=== PATIENT | female | born 1940 | race Two or more races ===

== ENCOUNTER 2016-08-01 16:09 | Inpatient (IN) | payer MEDICARE, MEDICAID ==
[~2016-08-01] VITALS: Ht 162.6 cm; Wt 72.6 kg
[2016-08-01 16:11] VITALS: BP 132/80
[2016-08-01 17:14] LABS: BASOPHILS % (AUTO) 0.3 % (0.0-2.0); EOSINOPHILS % (AUTO) 0.5 % (0.0-3.0); LYMPHOCYTES % (AUTO) 10.7 % (20.0-45.0); MEAN CORPUSCULAR HEMOGLOBIN 31.3 PG (27.0-31.0); MEAN CORPUSCULAR HGB CONC 33.4 G/DL (32.0-36.0); MEAN CORPUSCULAR VOLUME 94 FL (80-99); MEAN PLATELET VOLUME 5.8 FL (6.5-10.1); MONOCYTES % (AUTO) 7.3 % (1.0-10.0); NEUTROPHILS % (AUTO) 81.2 % (45.0-75.0); PLATELET COUNT 153 K/UL (150-450); RED BLOOD COUNT 3.91 M/UL (4.20-5.40); RED CELL DISTRIBUTION WIDTH 13.6 % (11.6-14.8); WHITE BLOOD COUNT 9.1 K/UL (4.8-10.8)
--- NOTE | 2016-08-01 17:33 | Diagnostic Imaging Report ---
Indication: Syncope Technique: spiral acquisitions obtained through the brain. Angled axial and coronal 5 x 5 mm slices were reconstructed. No IV contrast utilized. Radiation dose was minimized using automated exposure control Total dose length product 1420 mGycm. CTDIvol(s) 70 mGy Comparison: none FINDINGS: No acute hemorrhage or edema. No mass effect or midline shift. There is age-related enlargement of the ventricles and extra axial CSF spaces. There is periventricular deep white matter ischemic change. There is an old lacunar infarct in the right basal ganglia. Normal steward-white differentiation. Visualized orbits are unremarkable. Visualized sinuses are unremarkable. Intact calvarium. IMPRESSION: Chronic and age-related changes. Negative for acute intracranial bleed or mass effect Old right basal ganglia lacunar infarct The CT scanner at [facility] is accredited by the [employer] and the scans are performed using protocols designed to limit radiation exposure to as low as reasonably achievable to attain images of sufficient resolution adequate for diagnostic evaluation
--- NOTE | 2016-08-01 17:33 | Emergency Room Report ---
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 when she had an episode of tripping and falling Patient does not report any loss of consciousness or lightheadedness prior to the fall reports that she put her right hand in front of her which cause her pain in the right forearm after the fall Denies any chest pain or short of breath She had a mild headache as well Denies any abdominal pain Patient had pain under the left breast as well Denies any neck pain or photophobia Denies any lower extremity weakness Allergies: Coded Allergies: No Known Allergies (Unverified , 08/01/16) Patient History Past Medical History: see triage record Pertinent Family History: none Reviewed Nursing Documentation: PMH: Agreed, PSxH: Agreed Nursing Documentation-PMH Hx Hypertension: Yes Review of Systems All Other Systems: negative except mentioned in HPI Physical Exam Vital Signs Date Time Temp Pulse Resp B/P Pulse Ox O2 Delivery O2 Flow Rate FiO2 08/01/16 16:01 56 18 132/80 96 Room Air Sp02 EP Interpretation: reviewed, normal General Appearance: well appearing, no apparent distress Head: normocephalic, atraumatic Eyes: bilateral eye EOMI, bilateral eye PERRL ENT: hearing grossly normal, normal pharynx, TMs + canals normal, uvula midline , other - Small laceration in the inner aspect of the upper lip Neck: full range of motion, supple, no meningismus, no bony tend Respiratory: lungs clear, normal breath sounds, no rhonchi, no respiratory distress, no retraction, no accessory muscle use Cardiovascular #1: normal peripheral pulses, regular rate, rhythm, no edema, no gallop, no JVD, no murmur Gastrointestinal: normal bowel sounds, non tender, soft, no mass, no organomegaly, non-distended, no guarding, no hernia, no pulsatile mass, no rebound Genitourinary: no CVA tenderness Musculoskeletal: other - Deformity to the right forearm Neurologic: oriented x3, responsive, sensory intact Psychiatric: mood/affect normal Skin: normal color, no rash, warm/dry, other - As described with right forearm Lymphatic: normal inspection, no adenopathy Procedures Splinting Splinting : Consent: Verbal Hand-Made Type: plaster Splint: sugar-tong - right forearm Pre-Proc Neuro Vasc Exam: normal Post-Proc Neuro Vasc Exam: normal Patient Tolerated: Well Complications: None Joint Reduction Joint Reduction : Consent: Verbal Joint Reduction Site: other - right wrist Procedural Sedation: No Reduction Attempts: One Pre-Procedure NV Exam: Yes Post-Procedure NV Exam: Yes Patient Tolerated: Well Complications: None Progress Patient had a hematoma block performed with total of 4 mL 1% lidocaine into the fracture site in the right forearm, this provided appropriate sedation In the usual manner patient had traction countertraction, with a forward lean motion, we had improved alignment clinically in the right forearm with a distal radial aspect being pushed and manipulated in the palmar aspect Medical Decision Making Diagnostic Impression: Primary Impression: Syncope Additional Impressions: Wrist fracture, right Contusion ER Course Patient is a fairly complex patient with multiple differential to consideration including but not limited to cardiac cardiopulmonary and vascular emergencies Patient's CT head did not show any acute disease X-ray of the right forearm does reveal distal radial fracture This was reduced and splinted as noted above patient received further hydration kidney function is also elevated and patient admitted for further inpatient care Labs Test 08/01/16 17:01 White Blood Count 9.1 K/UL (4.8-10.8) Red Blood Count 3.91 M/UL (4.20-5.40) Hemoglobin 12.2 G/DL (12.0-16.0) Hematocrit 36.7 % (37.0-47.0) Mean Corpuscular Volume 94 FL (80-99) Mean Corpuscular Hemoglobin 31.3 PG (27.0-31.0) Mean Corpuscular Hemoglobin Concent 33.4 G/DL (32.0-36.0) Red Cell Distribution Width 13.6 % (11.6-14.8) Platelet Count 153 K/UL (150-450) Mean Platelet Volume 5.8 FL (6.5-10.1) Neutrophils (%) (Auto) 81.2 % (45.0-75.0) Lymphocytes (%) (Auto) 10.7 % (20.0-45.0) Monocytes (%) (Auto) 7.3 % (1.0-10.0) Eosinophils (%) (Auto) 0.5 % (0.0-3.0) Basophils (%) (Auto) 0.3 % (0.0-2.0) Prothrombin Time 9.9 SEC (9.30-11.50) Prothromb Time International Ratio 1.0 (0.9-1.1) Activated Partial Thromboplast Time 24 SEC (23-33) Sodium Level 141 mEQ/L (135-145) Potassium Level 5.0 mEQ/L (3.4-4.9) Chloride Level 102 mEQ/L (98-107) Carbon Dioxide Level 25 mEQ/L (20-30) Anion Gap 14 (5-15) Blood Urea Nitrogen 36 mg/dL (7-23) Creatinine 1.7 mg/dL (0.5-0.9) Estimat Glomerular Filtration Rate mL/min (>60) Glucose Level 143 mg/dL (74-106) Uric Acid 6.1 mg/dL (3.0-7.5) Calcium Level 10.0 mg/dL (8.6-10.2) Phosphorus Level 3.5 mg/dL (2.5-4.8) Magnesium Level 2.1 mg/dL (1.7-2.5) Total Bilirubin 0.7 mg/dL (0.0-1.2) Aspartate Amino Transf (AST/SGOT) 18 U/L (5-40) Alanine Aminotransferase (ALT/SGPT) 22 U/L (3-33) Alkaline Phosphatase 53 U/L (35-104) Total Creatine Kinase 73 U/L (26-140) Creatine Kinase MB 3.5 ng/mL (< 3.8) Creatine Kinase MB Relative Index 4.7 Troponin I < 0.30 ng/mL (<=0.30) Pro-B-Type Natriuretic Peptide 2155 pg/mL (0-450) Total Protein 5.8 g/dL (6.6-8.7) Albumin 4.0 g/dL (3.5-5.2) Globulin 1.8 g/dL Albumin/Globulin Ratio 2.2 (1.0-2.7) Lipase 19 U/L (< 60) Thyroid Stimulating Hormone (TSH) 1.780 uIU/mL (0.300-4.500) Free Thyroxine 1.54 ng/dL (0.86-1.85) EKG Diagnostic Results Rate: normal Rhythm: NSR ST Segments: other - Nonspecific ST and T-wave changes Rhythm Strip Diag. Results EP Interpretation: yes Rate: 77 Rhythm: NSR, no PVC's, no ectopy Chest X-Ray Diagnostic Results EP Interpretation: Yes Findings: no consolidation, no effusion, no pneumothorax Number of Views: 1 Other X-Ray Diagnostic Results Other X-Ray Diagnostic Results : EP Interpretation: Yes Findings: no soft tissue swelling, other - Distal radial fracture mild soft tissue swelling no foreign body, , Number of Views: 2 - right forearm CT/MRI/US Diagnostic Results CT/MRI/US Diagnostic Results : Impression CT head no acute disease Last Vital Signs Date Time Temp Pulse Resp B/P Pulse Ox O2 Delivery O2 Flow Rate FiO2 08/01/16 16:01 56 18 132/80 96 Room Air Status: improved Disposition: ADMITTED INPATIENT Condition: Serious Referrals: NOT CHOSEN IPA/,REFERRING (PCP) GRACIELA CASANOVA D.O. Aug 01, 2016 17:32
[2016-08-01 17:37] LABS: ALANINE AMINOTRANSFERASE 22 U/L (3-33); ALBUMIN/GLOBULIN RATIO 2.2 (1.0-2.7); ANION GAP 14 (5-15); ASPARTATE AMINO TRANSFERASE 18 U/L (5-40); CARBON DIOXIDE 25 mEQ/L (20-30); CHLORIDE 102 mEQ/L (98-107); CREATININE 1.7 mg/dL (0.5-0.9); HEMOLYSIS 8; LIPASE 19 U/L (< 60); SODIUM 141 mEQ/L (135-145); TOTAL PROTEIN 5.8 g/dL (6.6-8.7)
[2016-08-01 17:54] LABS: PROTHROMBIN TIME 9.9 SEC (9.30-11.50)
[2016-08-01 17:57] LABS: TROPONIN I < 0.30 ng/mL (<=0.30)
[2016-08-01 18:05] LABS: CKMB 3.5 ng/mL (< 3.8)
[2016-08-01 18:34] VITALS: BP 142/84
[2016-08-01] MEDS ORDERED: Morphine Sulfate 4mg/ml Inj IVP ONE (19:15)
[2016-08-01] MEDS ORDERED: Nitroglycerin Subl 0.4mg tab (Bottle Of 25) SL PRN (19:30)
[2016-08-01] MEDS ORDERED: Miralax 17gm pkt ORAL PRN (19:30)
[2016-08-01] MEDS ORDERED: DuoNeb 0.5-3(2.5)mg/3ml neb HHN PRN (19:30)
[2016-08-01] MEDS ORDERED: LORazepam Inj 2mg/ml 1ml IV PRN (19:30)
[2016-08-01] MEDS ORDERED: Mylanta II UD 30ml ORAL PRN (19:30)
[2016-08-01 19:58] LABS: MAGNESIUM 2.1 mg/dL (1.7-2.5); PHOSPHORUS 3.5 mg/dL (2.5-4.8); URIC ACID 6.1 mg/dL (3.0-7.5)
[2016-08-01] MEDS ORDERED: TRAMADOL HCL200 M1 ORAL (20:07)
[2016-08-01] MEDS ORDERED: HYDRALAZINE HCL50 MG ORAL (20:07)
[2016-08-01 20:09] LABS: THYROID STIMULATING HORMONE 1.78 uIU/mL (0.300-4.500)
[2016-08-01] MEDS: Morphine Sulfate 2mg/ml Inj IVP PRN (21:26)
[2016-08-01] MEDS: Heparin 5000 units/ml inj SUBQ SCH (21:32)
[2016-08-02] VITALS (8 sets, daily range): BP systolic 139–192; BP diastolic 55–92
[2016-08-02] MEDS: Morphine Sulfate 2mg/ml Inj IVP PRN ×3 (01:17→22:17)
[2016-08-02 04:02] LABS: APPEARANCE,URINE CLEAR; KETONES,URINE NEGATIVE (NEGATIVE); PH,URINE 5 (4.5-8.0); PROTEIN,URINE NEGATIVE (NEGATIVE); UROBILINOGEN,URINE NORMAL MG/DL (0.0-1.0)
[2016-08-02 04:28] LABS: LEUKOCYTE ESTERASE ,URINE NEGATIVE (NEGATIVE); NITRITE,URINE NEGATIVE (NEGATIVE)
[2016-08-02 05:22] LABS: RBC,URINE 0-2 /HPF (0 - 2)
[2016-08-02 05:23] LABS: BACTERIA,URINE FEW /HPF; SQUAMOUS EPITHELIAL CELL,UR FEW /LPF (NONE/OCC)
--- NOTE | 2016-08-02 06:38 | Consultation ---
DATE OF CONSULTATION: 08/01/2016 CHIEF COMPLAINT: Right wrist pain. HISTORY OF PRESENT ILLNESS: The patient is a pleasant 76-year-old female who sustained a mechanical fall. She had a displaced distal radius fracture. Orthopedic consult was obtained for further care and recommendation. The patient had a hematoma block when the initial anesthesia was done in the ER with complication of in place. PAST MEDICAL HISTORY: Reviewed from the intake chart. PAST SURGICAL HISTORY: Reviewed from the intake chart. MEDICATIONS: Reviewed from the intake chart. ASSESSMENT: Right extraarticular distal radius fracture. DISCUSSION: At this point, she has moderate swelling. I have recommended elevation of the right hand above the heart. I also recommend removal of the rings that are in the hands. I am going to get repeat postreduction films to see the overall reduction. The overall reduction was reasonable in the event that it is still displaced then consideration for open reduction and internal fixation would be reasonable. We will obtain the imaging studies. In the meantime, she is going to be evaluated by Dr. Lake from medical point of view to make sure that she is stable. Daniel Dodd M.D. DR: WILMAN JOB#: [id number] CC:
[2016-08-02 07:21] LABS: BASOPHILS % (AUTO) 0.3 % (0.0-2.0); EOSINOPHILS % (AUTO) 0.5 % (0.0-3.0); LYMPHOCYTES % (AUTO) 13.7 % (20.0-45.0); MEAN CORPUSCULAR HEMOGLOBIN 30.9 PG (27.0-31.0); MEAN CORPUSCULAR HGB CONC 32.4 G/DL (32.0-36.0); MEAN CORPUSCULAR VOLUME 95 FL (80-99); MEAN PLATELET VOLUME 6.5 FL (6.5-10.1); MONOCYTES % (AUTO) 10.1 % (1.0-10.0); NEUTROPHILS % (AUTO) 75.4 % (45.0-75.0); PLATELET COUNT 148 K/UL (150-450); RED BLOOD COUNT 3.85 M/UL (4.20-5.40); RED CELL DISTRIBUTION WIDTH 13.6 % (11.6-14.8); WHITE BLOOD COUNT 7.4 K/UL (4.8-10.8)
[2016-08-02 07:44] LABS: ALANINE AMINOTRANSFERASE 19 U/L (3-33); ANION GAP 14 (5-15); ASPARTATE AMINO TRANSFERASE 18 U/L (5-40); CALCIUM 9.6 mg/dL (8.6-10.2); CARBON DIOXIDE 23 mEQ/L (20-30); CHLORIDE 103 mEQ/L (98-107); CHOLESTEROL 196 mg/dL (< 200); CHOLESTEROL/HDL RATIO 5.8 (3.3-4.4); CREATININE 1.6 mg/dL (0.5-0.9); HEMOLYSIS 4; LDL CHOLESTEROL (CALC.) 124 mg/dL (60-99); POTASSIUM 4.8 mEQ/L (3.4-4.9); SODIUM 140 mEQ/L (135-145); TOTAL PROTEIN 5.5 g/dL (6.6-8.7)
[2016-08-02] MEDS: Heparin 5000 units/ml inj SUBQ SCH ×2 (08:19→20:20)
--- NOTE | 2016-08-02 10:55 | Diagnostic Imaging Report ---
Indication: Chest pain Technique: One view of the chest Comparison: none Findings: Low lung volumes noted. Patient's chin obscures the upper mediastinum. The heart is enlarged. Aorta is tortuous and calcified. No definite infiltrate, effusion, or congestion Impression: Findings as noted. Limited exam. No definite acute process
--- NOTE | 2016-08-02 10:57 | Diagnostic Imaging Report ---
Indications: Pain, status post fall Technique: Two views of the left forearm Comparison: None Findings: There is a posteriorly displaced fracture of the distal radius, displaced by about one bone width. There is a nondisplaced fracture of the ulnar styloid. Bones are osteoporotic Impression: Positive for distal radial and ulnar fractures
--- NOTE | 2016-08-02 12:56 | History and Physical ---
History of Present Illness General Date patient seen: Aug 02, 2016 Reason for Hospitalization: Multiple Trauma/Fall Present Illness HPI 76 year old female with hx of HTN, brought in by paramedics with CC of tripping and falling. she doesn't remember if she fainted or not. she developed right hand/ wrist pain. Initial evaluation in ER showed that she has right wrist fracture. She is admitted to telemetry for further evaluation of the possible syncopal episode. Allergies: Coded Allergies: No Known Allergies (Unverified , 08/01/16) Medication History Scheduled Hydralazine Hcl* (Hydralazine Hcl*), 50 MG ORAL EVERY 8 HOURS, (Reported) Tramadol Hcl (Tramadol Hcl), 200 MG ORAL DAILY, (Reported) Patient History Healthcare decision maker BARNEYSTALIN (SON) [phone] Resuscitation status Full Code Advanced Directive on File Past Medical/Surgical History Past Medical/Surgical History: (1) History of hypertension Review of Systems All Other Systems: negative except mentioned in HPI Physical Exam General Appearance: WD/WN Lines, tubes and drains: peripheral HEENT: normocephalic, atraumatic Neck: non-tender, supple Respiratory/Chest: chest wall non-tender, lungs clear Cardiovascular/Chest: normal peripheral pulses, normal rate Abdomen: normal bowel sounds, non tender Extremities: other - right wrist cast Skin Exam: normal pigmentation Neurologic: mounter sousaphones II-XII grossly normal Last 24 Hour Vital Signs Date Time Temp Pulse Resp B/P Pulse Ox O2 Delivery O2 Flow Rate FiO2 08/02/16 12:02 97.5 55 18 159/81 96 Room Air 55 08/02/16 08:18 192/92 08/02/16 08:00 56 08/02/16 08:00 99.0 58 18 192/92 95 Room Air 55 08/02/16 04:16 98.1 60 18 150/81 98 Room Air 08/02/16 04:00 57 08/02/16 00:00 98.8 58 18 167/74 97 Room Air 08/02/16 00:00 57 08/01/16 19:40 98.1 84 18 142/84 96 Room Air 08/01/16 18:34 98.1 84 18 142/84 96 Room Air 08/01/16 16:11 98.1 84 18 132/80 96 Room Air 4/3/17 16:01 56 18 132/80 96 Room Air Intake and Output 08/01/16 08/02/16 19:00 07:00 Intake Total 500 ml 420 ml Balance 500 ml 420 ml Intake Oral 420 ml IV Total 500 ml # Voids 2 Laboratory Tests Test 08/01/16 17:01 08/02/16 00:30 08/02/16 06:35 White Blood Count 9.1 K/UL (4.8-10.8) 7.4 K/UL (4.8-10.8) Red Blood Count 3.91 M/UL (4.20-5.40) L 3.85 M/UL (4.20-5.40) L Hemoglobin 12.2 G/DL (12.0-16.0) 11.9 G/DL (12.0-16.0) L Hematocrit 36.7 % (37.0-47.0) L 36.6 % (37.0-47.0) L Mean Corpuscular Volume 94 FL (80-99) 95 FL (80-99) Mean Corpuscular Hemoglobin 31.3 PG (27.0-31.0) H 30.9 PG (27.0-31.0) Mean Corpuscular Hemoglobin Concent 33.4 G/DL (32.0-36.0) 32.4 G/DL (32.0-36.0) Red Cell Distribution Width 13.6 % (11.6-14.8) 13.6 % (11.6-14.8) Platelet Count 153 K/UL (150-450) 148 K/UL (150-450) L Mean Platelet Volume 5.8 FL (6.5-10.1) L 6.5 FL (6.5-10.1) Neutrophils (%) (Auto) 81.2 % (45.0-75.0) H 75.4 % (45.0-75.0) H Lymphocytes (%) (Auto) 10.7 % (20.0-45.0) L 13.7 % (20.0-45.0) L Monocytes (%) (Auto) 7.3 % (1.0-10.0) 10.1 % (1.0-10.0) H Eosinophils (%) (Auto) 0.5 % (0.0-3.0) 0.5 % (0.0-3.0) Basophils (%) (Auto) 0.3 % (0.0-2.0) 0.3 % (0.0-2.0) Prothrombin Time 9.9 SEC (9.30-11.50) 10.0 SEC (9.30-11.50) Prothromb Time International Ratio 1.0 (0.9-1.1) 1.0 (0.9-1.1) Activated Partial Thromboplast Time 24 SEC (23-33) 26 SEC (23-33) Sodium Level 141 mEQ/L (135-145) 140 mEQ/L (135-145) Potassium Level 5.0 mEQ/L (3.4-4.9) H 4.8 mEQ/L (3.4-4.9) Chloride Level 102 mEQ/L (98-107) 103 mEQ/L (98-107) Carbon Dioxide Level 25 mEQ/L (20-30) 23 mEQ/L (20-30) Anion Gap 14 (5-15) 14 (5-15) Blood Urea Nitrogen 36 mg/dL (7-23) H 29 mg/dL (7-23) H Creatinine 1.7 mg/dL (0.5-0.9) H 1.6 mg/dL (0.5-0.9) H Estimat Glomerular Filtration Rate mL/min (>60) mL/min (>60) Glucose Level 143 mg/dL (74-106) H 154 mg/dL (74-106) H Uric Acid 6.1 mg/dL (3.0-7.5) Calcium Level 10.0 mg/dL (8.6-10.2) 9.6 mg/dL (8.6-10.2) Phosphorus Level 3.5 mg/dL (2.5-4.8) Magnesium Level 2.1 mg/dL (1.7-2.5) Total Bilirubin 0.7 mg/dL (0.0-1.2) 0.9 mg/dL (0.0-1.2) Aspartate Amino Transf (AST/SGOT) 18 U/L (5-40) 18 U/L (5-40) Alanine Aminotransferase (ALT/SGPT) 22 U/L (3-33) 19 U/L (3-33) Alkaline Phosphatase 53 U/L (35-104) 51 U/L (35-104) Total Creatine Kinase 73 U/L (26-140) Creatine Kinase MB 3.5 ng/mL (< 3.8) Creatine Kinase MB Relative Index 4.7 Troponin I < 0.30 ng/mL (<=0.30) Pro-B-Type Natriuretic Peptide 2155 pg/mL (0-450) H Total Protein 5.8 g/dL (6.6-8.7) L 5.5 g/dL (6.6-8.7) L Albumin 4.0 g/dL (3.5-5.2) 3.7 g/dL (3.5-5.2) Globulin 1.8 g/dL 1.8 g/dL Albumin/Globulin Ratio 2.2 (1.0-2.7) 2.0 (1.0-2.7) Lipase 19 U/L (< 60) Thyroid Stimulating Hormone (TSH) 1.780 uIU/mL (0.300-4.500) 2.210 uIU/mL (0.300-4.500) Free Thyroxine 1.54 ng/dL (0.86-1.85) Urine Color Pale yellow Urine Appearance Clear Urine pH 5 (4.5-8.0) Urine Specific [place] 1.020 (1.005-1.035) Urine Protein Negative (NEGATIVE) Urine Glucose (UA) 1+ (NEGATIVE) H Urine Ketones Negative (NEGATIVE) Urine Occult Blood Negative (NEGATIVE) Urine Nitrite Negative (NEGATIVE) Urine Bilirubin Negative (NEGATIVE) Urine Urobilinogen Normal MG/DL (0.0-1.0) Urine Leukocyte Esterase Negative (NEGATIVE) Urine RBC 0-2 /HPF (0 - 2) Urine WBC 2-4 /HPF (0 - 2) Urine Squamous Epithelial Cells Few /LPF (NONE/OCC) Urine Bacteria Few /HPF (NONE) Urine Eosinophils Few Urine Osmolality Pending Urine Random Sodium 145 mmol/L Urine Potassium Timed 37 mmol/L Plasma/Serum Osmolality Pending Triglycerides Level 191 mg/dL (< 150) H Cholesterol Level 196 mg/dL (< 200) LDL Cholesterol 124 mg/dL (60-99) H HDL Cholesterol 34 mg/dL (> 60) Cholesterol/HDL Ratio 5.8 (3.3-4.4) H Free Triiodothyronine Pending Cortisol Pending Height (Feet): 5 Height (Inches): 4.00 Weight (Pounds): 160 Medications Current Medications Medications (Trade) Dose Ordered Sig/Jasmina Route PRN Reason Start Time Stop Time Status Last Admin Dose Admin Acetaminophen (Tylenol) 650 mg Q4H PRN ORAL fever 08/01/16 19:30 08/31/16 19:29 Al Hydroxide/Mg Hydroxide (Mylanta II) 30 ml Q6H PRN ORAL dyspepsia 08/01/16 19:30 08/31/16 19:29 Albuterol/ Ipratropium (DuoNeb 0.5-3(2.5)mg/3ml) 3 ml Q4H PRN HHN Shortness of Breath 08/01/16 19:30 08/06/16 19:29 Clonidine HCl (Catapres) 0.1 mg Q4H PRN ORAL SBP > 160 08/01/16 19:30 08/31/16 19:29 08/02/16 08:18 Dextrose (Dextrose 50%) STAT PRN IV Hypoglycemia 08/01/16 19:30 08/31/16 19:29 Heparin Sodium (Porcine) (Heparin 5000 units/ml) 5,000 units EVERY 12 HOURS SUBQ 08/01/16 21:00 08/31/16 20:59 08/02/16 08:19 Lorazepam (Ativan 2mg/ml 1ml) 0.5 mg Q4H PRN IV For Anxiety 08/01/16 19:30 08/08/16 19:29 Morphine Sulfate (Morphine Sulfate) 1 mg Q4H PRN IVP For Pain 7-10 08/01/16 19:30 08/08/16 19:29 08/02/16 10:40 Nitroglycerin (Ntg) 0.4 mg Q5M X 3 DOSES PRN SL Prn Chest Pain 08/01/16 19:30 08/31/16 19:29 Ondansetron HCl (Zofran) 4 mg Q6H PRN IVP Nausea & Vomiting 08/01/16 19:30 08/31/16 19:29 Polyethylene Glycol (Miralax) 17 gm HSPRN PRN ORAL Constipation 08/01/16 19:30 08/31/16 19:29 Temazepam (Restoril) 15 mg HSPRN PRN ORAL Insomnia 08/01/16 19:30 08/08/16 19:29 Assessment/Plan Problem List: (1) Acute encephalopathy ICD Codes: G93.40 - Encephalopathy, unspecified SNOMED: 2782653 (2) ATN (acute tubular necrosis) ICD Codes: N17.0 - Acute kidney failure with tubular necrosis SNOMED: 41964465 (3) Syncope ICD Codes: R55 - Syncope and collapse SNOMED: 927271605 (4) History of hypertension ICD Codes: Z86.79 - Personal history of other diseases of the circulatory system SNOMED: 590600310 (5) Wrist fracture, right ICD Codes: S62.101A - Fracture of unspecified carpal bone, right wrist, initial encounter for closed fracture SNOMED: 63545414, 201734862 Assessment/Plan telemetry monitoring echo neuro and cardio evaluation ortho has seen and evaluated the pt MARY IRVING Aug 02, 2016 12:56
--- NOTE | 2016-08-02 16:03 | Neurology Progress Note ---
Objective Physical Exam Last Vital Signs Date Time Temp Pulse Resp B/P Pulse Ox O2 Delivery O2 Flow Rate FiO2 08/02/16 12:02 97.5 55 18 159/81 96 Room Air 55 Laboratory Tests Test 08/01/16 17:01 08/02/16 00:30 08/02/16 06:35 White Blood Count 9.1 K/UL (4.8-10.8) 7.4 K/UL (4.8-10.8) Red Blood Count 3.91 M/UL (4.20-5.40) L 3.85 M/UL (4.20-5.40) L Hemoglobin 12.2 G/DL (12.0-16.0) 11.9 G/DL (12.0-16.0) L Hematocrit 36.7 % (37.0-47.0) L 36.6 % (37.0-47.0) L Mean Corpuscular Volume 94 FL (80-99) 95 FL (80-99) Mean Corpuscular Hemoglobin 31.3 PG (27.0-31.0) H 30.9 PG (27.0-31.0) Mean Corpuscular Hemoglobin Concent 33.4 G/DL (32.0-36.0) 32.4 G/DL (32.0-36.0) Red Cell Distribution Width 13.6 % (11.6-14.8) 13.6 % (11.6-14.8) Platelet Count 153 K/UL (150-450) 148 K/UL (150-450) L Mean Platelet Volume 5.8 FL (6.5-10.1) L 6.5 FL (6.5-10.1) Neutrophils (%) (Auto) 81.2 % (45.0-75.0) H 75.4 % (45.0-75.0) H Lymphocytes (%) (Auto) 10.7 % (20.0-45.0) L 13.7 % (20.0-45.0) L Monocytes (%) (Auto) 7.3 % (1.0-10.0) 10.1 % (1.0-10.0) H Eosinophils (%) (Auto) 0.5 % (0.0-3.0) 0.5 % (0.0-3.0) Basophils (%) (Auto) 0.3 % (0.0-2.0) 0.3 % (0.0-2.0) Prothrombin Time 9.9 SEC (9.30-11.50) 10.0 SEC (9.30-11.50) Prothromb Time International Ratio 1.0 (0.9-1.1) 1.0 (0.9-1.1) Activated Partial Thromboplast Time 24 SEC (23-33) 26 SEC (23-33) Sodium Level 141 mEQ/L (135-145) 140 mEQ/L (135-145) Potassium Level 5.0 mEQ/L (3.4-4.9) H 4.8 mEQ/L (3.4-4.9) Chloride Level 102 mEQ/L (98-107) 103 mEQ/L (98-107) Carbon Dioxide Level 25 mEQ/L (20-30) 23 mEQ/L (20-30) Anion Gap 14 (5-15) 14 (5-15) Blood Urea Nitrogen 36 mg/dL (7-23) H 29 mg/dL (7-23) H Creatinine 1.7 mg/dL (0.5-0.9) H 1.6 mg/dL (0.5-0.9) H Estimat Glomerular Filtration Rate mL/min (>60) mL/min (>60) Glucose Level 143 mg/dL (74-106) H 154 mg/dL (74-106) H Uric Acid 6.1 mg/dL (3.0-7.5) Calcium Level 10.0 mg/dL (8.6-10.2) 9.6 mg/dL (8.6-10.2) Phosphorus Level 3.5 mg/dL (2.5-4.8) Magnesium Level 2.1 mg/dL (1.7-2.5) Total Bilirubin 0.7 mg/dL (0.0-1.2) 0.9 mg/dL (0.0-1.2) Aspartate Amino Transf (AST/SGOT) 18 U/L (5-40) 18 U/L (5-40) Alanine Aminotransferase (ALT/SGPT) 22 U/L (3-33) 19 U/L (3-33) Alkaline Phosphatase 53 U/L (35-104) 51 U/L (35-104) Total Creatine Kinase 73 U/L (26-140) Creatine Kinase MB 3.5 ng/mL (< 3.8) Creatine Kinase MB Relative Index 4.7 Troponin I < 0.30 ng/mL (<=0.30) Pro-B-Type Natriuretic Peptide 2155 pg/mL (0-450) H Total Protein 5.8 g/dL (6.6-8.7) L 5.5 g/dL (6.6-8.7) L Albumin 4.0 g/dL (3.5-5.2) 3.7 g/dL (3.5-5.2) Globulin 1.8 g/dL 1.8 g/dL Albumin/Globulin Ratio 2.2 (1.0-2.7) 2.0 (1.0-2.7) Lipase 19 U/L (< 60) Thyroid Stimulating Hormone (TSH) 1.780 uIU/mL (0.300-4.500) 2.210 uIU/mL (0.300-4.500) Free Thyroxine 1.54 ng/dL (0.86-1.85) Urine Color Pale yellow Urine Appearance Clear Urine pH 5 (4.5-8.0) Urine Specific [place] 1.020 (1.005-1.035) Urine Protein Negative (NEGATIVE) Urine Glucose (UA) 1+ (NEGATIVE) H Urine Ketones Negative (NEGATIVE) Urine Occult Blood Negative (NEGATIVE) Urine Nitrite Negative (NEGATIVE) Urine Bilirubin Negative (NEGATIVE) Urine Urobilinogen Normal MG/DL (0.0-1.0) Urine Leukocyte Esterase Negative (NEGATIVE) Urine RBC 0-2 /HPF (0 - 2) Urine WBC 2-4 /HPF (0 - 2) Urine Squamous Epithelial Cells Few /LPF (NONE/OCC) Urine Bacteria Few /HPF (NONE) Urine Eosinophils Few Urine Osmolality Pending Urine Random Sodium 145 mmol/L Urine Potassium Timed 37 mmol/L Plasma/Serum Osmolality Pending Triglycerides Level 191 mg/dL (< 150) H Cholesterol Level 196 mg/dL (< 200) LDL Cholesterol 124 mg/dL (60-99) H HDL Cholesterol 34 mg/dL (> 60) Cholesterol/HDL Ratio 5.8 (3.3-4.4) H Free Triiodothyronine Pending Cortisol Pending Impression/Recommendations Problems: (1) probably mechanical fall (2) Blunt head injury (3) Wrist fracture, right (4) History of hypertension Status: stable Recommendations #[id number] WALTER PEREZ Aug 02, 2016 16:03
--- NOTE | 2016-08-02 16:30 | Cardiology Progress Note ---
Assessment/Plan Assessment/Plan [id number] non syncopal fall obesity chest wall tenderness ? 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 hydrALAZINE (APRESOLINE) 50 mg oral tablet, Take 50 mg by mouth 3 times daily. gabapentin (NEURONTIN) 300 mg capsule, Take 300 mg by mouth 2 times daily. cholecalciferol, Vitamin D3, (DELTA 3) 400 unit oral tablet, Take 800 Units by mouth 2 times daily. Febuxostat (ULORIC) 40 mg TABS, Take 40 mg by mouth daily. clopidogrel (PLAVIX) 75 mg oral tablet, Take 75 mg by mouth daily. dexlansoprazole (DEXILANT) 60 mg oral capsule, Take 60 mg by mouth every evening. rosuvastatin (CRESTOR) 5 mg oral tablet, Take 5 mg by mouth nightly. lubiprostone (AMITIZA) 24 mcg capsule, Take 24 mcg by mouth 2 times daily. desvenlafaxine succinate (PRISTIQ) 50 mg 24 hr tablet, Take 50 mg by mouth daily. DOCUSATE SODIUM (DOCU SOFT PO), Take 250 mg by mouth daily as needed. Patient Active Problem List: DM2 (diabetes mellitus, type 2) (HCC) Hyperlipidemia Renal cell carcinoma (HCC) Single kidney Obese Essential hypertension Bradycardia ARF (acute renal failure) (HCC) Objective Last 24 Hour Vital Signs Date Time Temp Pulse Resp B/P Pulse Ox O2 Delivery O2 Flow Rate FiO2 08/02/16 12:02 97.5 55 18 159/81 96 Room Air 55 08/02/16 12:00 58 08/02/16 08:18 192/92 08/02/16 08:00 56 08/02/16 08:00 99.0 58 18 192/92 95 Room Air 55 08/02/16 04:16 98.1 60 18 150/81 98 Room Air 08/02/16 04:00 57 08/02/16 00:00 98.8 58 18 167/74 97 Room Air 08/02/16 00:00 57 08/01/16 19:40 98.1 84 18 142/84 96 Room Air 08/01/16 18:34 98.1 84 18 142/84 96 Room Air Intake and Output 08/01/16 08/02/16 19:00 07:00 Intake Total 500 ml 420 ml Balance 500 ml 420 ml Intake Oral 420 ml IV Total 500 ml # Voids 2 Laboratory Tests Test 08/01/16 17:01 08/02/16 00:30 08/02/16 06:35 White Blood Count 9.1 K/UL (4.8-10.8) 7.4 K/UL (4.8-10.8) Red Blood Count 3.91 M/UL (4.20-5.40) L 3.85 M/UL (4.20-5.40) L Hemoglobin 12.2 G/DL (12.0-16.0) 11.9 G/DL (12.0-16.0) L Hematocrit 36.7 % (37.0-47.0) L 36.6 % (37.0-47.0) L Mean Corpuscular Volume 94 FL (80-99) 95 FL (80-99) Mean Corpuscular Hemoglobin 31.3 PG (27.0-31.0) H 30.9 PG (27.0-31.0) Mean Corpuscular Hemoglobin Concent 33.4 G/DL (32.0-36.0) 32.4 G/DL (32.0-36.0) Red Cell Distribution Width 13.6 % (11.6-14.8) 13.6 % (11.6-14.8) Platelet Count 153 K/UL (150-450) 148 K/UL (150-450) L Mean Platelet Volume 5.8 FL (6.5-10.1) L 6.5 FL (6.5-10.1) Neutrophils (%) (Auto) 81.2 % (45.0-75.0) H 75.4 % (45.0-75.0) H Lymphocytes (%) (Auto) 10.7 % (20.0-45.0) L 13.7 % (20.0-45.0) L Monocytes (%) (Auto) 7.3 % (1.0-10.0) 10.1 % (1.0-10.0) H Eosinophils (%) (Auto) 0.5 % (0.0-3.0) 0.5 % (0.0-3.0) Basophils (%) (Auto) 0.3 % (0.0-2.0) 0.3 % (0.0-2.0) Prothrombin Time 9.9 SEC (9.30-11.50) 10.0 SEC (9.30-11.50) Prothromb Time International Ratio 1.0 (0.9-1.1) 1.0 (0.9-1.1) Activated Partial Thromboplast Time 24 SEC (23-33) 26 SEC (23-33) Sodium Level 141 mEQ/L (135-145) 140 mEQ/L (135-145) Potassium Level 5.0 mEQ/L (3.4-4.9) H 4.8 mEQ/L (3.4-4.9) Chloride Level 102 mEQ/L (98-107) 103 mEQ/L (98-107) Carbon Dioxide Level 25 mEQ/L (20-30) 23 mEQ/L (20-30) Anion Gap 14 (5-15) 14 (5-15) Blood Urea Nitrogen 36 mg/dL (7-23) H 29 mg/dL (7-23) H Creatinine 1.7 mg/dL (0.5-0.9) H 1.6 mg/dL (0.5-0.9) H Estimat Glomerular Filtration Rate mL/min (>60) mL/min (>60) Glucose Level 143 mg/dL (74-106) H 154 mg/dL (74-106) H Uric Acid 6.1 mg/dL (3.0-7.5) Calcium Level 10.0 mg/dL (8.6-10.2) 9.6 mg/dL (8.6-10.2) Phosphorus Level 3.5 mg/dL (2.5-4.8) Magnesium Level 2.1 mg/dL (1.7-2.5) Total Bilirubin 0.7 mg/dL (0.0-1.2) 0.9 mg/dL (0.0-1.2) Aspartate Amino Transf (AST/SGOT) 18 U/L (5-40) 18 U/L (5-40) Alanine Aminotransferase (ALT/SGPT) 22 U/L (3-33) 19 U/L (3-33) Alkaline Phosphatase 53 U/L (35-104) 51 U/L (35-104) Total Creatine Kinase 73 U/L (26-140) Creatine Kinase MB 3.5 ng/mL (< 3.8) Creatine Kinase MB Relative Index 4.7 Troponin I < 0.30 ng/mL (<=0.30) Pro-B-Type Natriuretic Peptide 2155 pg/mL (0-450) H Total Protein 5.8 g/dL (6.6-8.7) L 5.5 g/dL (6.6-8.7) L Albumin 4.0 g/dL (3.5-5.2) 3.7 g/dL (3.5-5.2) Globulin 1.8 g/dL 1.8 g/dL Albumin/Globulin Ratio 2.2 (1.0-2.7) 2.0 (1.0-2.7) Lipase 19 U/L (< 60) Thyroid Stimulating Hormone (TSH) 1.780 uIU/mL (0.300-4.500) 2.210 uIU/mL (0.300-4.500) Free Thyroxine 1.54 ng/dL (0.86-1.85) Urine Color Pale yellow Urine Appearance Clear Urine pH 5 (4.5-8.0) Urine Specific [place] 1.020 (1.005-1.035) Urine Protein Negative (NEGATIVE) Urine Glucose (UA) 1+ (NEGATIVE) H Urine Ketones Negative (NEGATIVE) Urine Occult Blood Negative (NEGATIVE) Urine Nitrite Negative (NEGATIVE) Urine Bilirubin Negative (NEGATIVE) Urine Urobilinogen Normal MG/DL (0.0-1.0) Urine Leukocyte Esterase Negative (NEGATIVE) Urine RBC 0-2 /HPF (0 - 2) Urine WBC 2-4 /HPF (0 - 2) Urine Squamous Epithelial Cells Few /LPF (NONE/OCC) Urine Bacteria Few /HPF (NONE) Urine Eosinophils Few Urine Osmolality Pending Urine Random Sodium 145 mmol/L Urine Potassium Timed 37 mmol/L Plasma/Serum Osmolality Pending Triglycerides Level 191 mg/dL (< 150) H Cholesterol Level 196 mg/dL (< 200) LDL Cholesterol 124 mg/dL (60-99) H HDL Cholesterol 34 mg/dL (> 60) Cholesterol/HDL Ratio 5.8 (3.3-4.4) H Free Triiodothyronine Pending Cortisol Pending EDA BANDA Aug 02, 2016 16:30
[2016-08-02] MEDS: HydrALAZINE 50mg tab ORAL SCH ×2 (19:49→23:30)
[2016-08-02] MEDS: Bystolic 2.5mg Tab ORAL SCH (19:50)
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
[2016-08-03 00:23] VITALS: BP 135/64
--- NOTE | 2016-08-03 02:38 | Consultation ---
DATE OF CONSULTATION: 08/02/2016 CARDIAC CONSULTATION CONSULTING PHYSICIAN: Nikko Fernandez M.D. REFERRING PHYSICIAN: Blade Lake M.D. REASON FOR REFERRAL: Possible syncope. HISTORY OF PRESENT ILLNESS: This is an elderly [place] female, who is followed by Dr. Ponce at [facility]. She tells me that she got out of a dentist office and she was walking and all of a sudden she thinks she tripped on something and she fell forward. She actually remembers the entire fall, the entire episode she fell forward and somebody saw her fall and came back and talked with her. She denies any loss of consciousness and she developed some pain in her right arm. The fall was also the chest because of the injury she sustained due to falling forward onto her face and chest and arm. She does not have any PND. She uses one pillow. There is no dizziness on standing position and no heart pounding or palpitations. She does have some leg swelling intermittently. She has not had any further exertional chest pain or shortness of breath. She never had syncope before and she has not been told that she has any prior heart issues. She has usually been followed by Dr. Ponce. The information obtained from the patient is for my discussion with the patient personally and from the help of one of the staff here that speaks Taiwanese and from my review of the patient's chart from [facility]. The patient was last seen by Dr. Ponce on 06/16/2016. PAST MEDICAL HISTORY: Her medical problems at [facility] include diabetes mellitus, hypertension, renal cell carcinoma, single kidney, obesity, hypertension, bradycardia, acute renal failure and pericardial effusion status post pericardiocentesis in 10/2009 possibly for a postviral syndrome. The patient also has a history of pulmonary nodule. MEDICATIONS: Her medications at home previously placed by Dr. Ponce include Bystolic 10 mg 2 tablets by mouth every evening, hydralazine 50 mg 3 times a day, Neurontin 300 mg 2 times daily, vitamin D 800 units 2 times daily, Uloric 40 mg daily, Plavix 75 mg daily, Dexilant 60 mg daily, Crestor 5 mg q.h.s., 24 mg by mouth 2 times daily, Pristiq 50 mg daily, and Colace 250 mg daily. ALLERGIES: She is not allergic to any medications. SOCIAL HISTORY: She never smoked and never drank alcoholic beverages. No drug use. She lives at home. REVIEW OF SYSTEMS: Gastrointestinal: She denies any nausea, vomiting, diarrhea, or constipation. Genitourinary: She denies any burning or blood in her urine. Pulmonary: Occasionally coughs. Constitutional: No fevers. No chills although she has shaking in her arms she says. Neurologic: Hand shaking. PHYSICAL EXAMINATION: GENERAL: Shows to be an elderly obese female, in no apparent respiratory distress. She has some ecchymosis on her face. VITAL SIGNS: The patient's blood pressure has been anywhere between 150/81 to 192/92 with heart rates in the 50s, and temperature 97.5 degrees. LUNGS: Appear to be clear to auscultation and percussion. CARDIAC: Regular rate and rhythm. Systolic ejection murmur noted. No RV, lifts, heaves, or thrills noted. Her chest wall is tender to palpation. ABDOMEN: Soft and nontender. Positive bowel sounds. EXTREMITIES: She has some ecchymosis in her lower extremities. She has a splint on the right arm, which is also in a sling. LABORATORY AND DIAGNOSTIC DATA: [facility] data indicated that the patient had perfusion imaging at [facility] with PET that was basically negative with ejection fraction 75% was noted. Her last echocardiogram by Dr. Ponce shows left atrial enlargement. The left ventricular hypertrophy appears normal wall motion with ejection fraction of 63%. The valves appear to be intact. White count was 7.4, hemoglobin 11.9, and platelet count 148,000. Sodium is 140, potassium 4.2, chloride 102, bicarbonate 22, BUN 29, creatinine 1.2, and glucose of 154. Liver function tests are normal. Total cholesterol is 196 with a LDL of 124 with HDL of 34. TSH of 2.1. Her blood sugar was 154. On direct comparison, the patient's data from [facility] was reviewed, where she has creatinine of between 1.5 to 2.5 over the past 24 months and her total cholesterol was 150 with a LDL of 73. Her B12 level was 214 previously. Chest x-ray shows low lung volumes and the heart is enlarged aortic tortuosity. No definite infiltrates or effusions are noted. Forearm x-ray shows distal, radial and ulnar fractures. The head CT shows chronic age-related changes, negative for intracranial bleed, or mass effect, or bibasilar ganglia lacunar infarction. ASSESSMENT: 1. Nonsyncopal fall. 2. Obesity. 3. Chest wall tenderness post fall possibly with contusion or fracture. 4. History of forearm fracture. 5. Hypertension chronic on Bystolic and hydralazine. 6. Bradycardia chronic on Bystolic. 7. Diabetes mellitus. 8. Hyperlipidemia. 9. Renal cell carcinoma. 10. Chronic renal insufficiency with creatinine up to 2.5 in 2016. PLAN: Dr. Lake, this patient was seen in cardiac consultation. The patient has had no loss of consciousness to suggest syncopal episode rather than nonsyncopal fall is likely a problem. She would resume hydralazine for now and not clear to me why she is on the present regimen of hydralazine and Bystolic. In light of fact that she has had some falls I would continue her hydralazine possibly on a higher dose and decrease the dose of her Bystolic for the time being. Orthostatic vitals will be checked and echocardiogram will be ordered. Neurologist Dr. Berg has seen the patient. There is an information which included from Brittney down below in the chart already. Nikko Fernandez M.D. DR: LAZARO JOB#: [id number] CC:
[2016-08-03 04:11] VITALS: BP 169/77
[2016-08-03] MEDS: HydrALAZINE 50mg tab ORAL SCH ×2 (05:35→13:56)
[2016-08-03 07:27] LABS: TROPONIN I < 0.30 ng/mL (<=0.30)
[2016-08-03 07:47] VITALS: BP 130/53
[2016-08-03] MEDS: Morphine Sulfate 2mg/ml Inj IVP PRN (08:41)
[2016-08-03] MEDS: Bystolic 2.5mg Tab ORAL SCH (08:41)
[2016-08-03] MEDS: Heparin 5000 units/ml inj SUBQ SCH (08:43)
[2016-08-03 08:53] LABS: CORTISOL LC 2.5 ug/dL (.); FREE TRIIODOTHYRONINE 3.3 pg/mL (2.0-4.4)
--- NOTE | 2016-08-03 10:23 | Diagnostic Imaging Report ---
APPROVED REPORT CPT Code: 32131 Vascular Symptoms CVA/TIA: Doppler Spectral Velocity Analysis RightLeft BILATERAL CAROTID: CCA/ECA - Imaging reveals no significant plaque in the common carotid and external carotid arteries, bilaterally. ICA - Imaging reveals irregular plaque in the internal carotid artery. The Doppler signal indicates the degree of stenosis is minimal (5-10%) in the internal carotid arteries, bilaterally. VERTEBRAL - The vertebral arteries are patent, without evidence of stenosis or steal, bilaterally.
[2016-08-03 11:15] VITALS: BP 128/66
--- NOTE | 2016-08-03 12:46 | Diagnostic Imaging Report ---
Indication: Chest pain Technique: Multiple views of the sternum Comparison: None Findings: No definite acute sternal fracture, although sternum is not well demonstrated on the available images. No evidence of retrosternal hematoma Impression: Very limited exam. No gross acute bony trauma
--- NOTE | 2016-08-03 13:00 | Pulmonology Progress Note ---
Assessment/Plan Problems: (1) Acute encephalopathy (2) ATN (acute tubular necrosis) (3) Syncope (4) History of hypertension (5) Wrist fracture, right Assessment/Plan cardio and Neuro notes reviewed echo reviewed dc home with home health Subjective ROS Limited/Unobtainable: No Interval Events: no new complains Allergies: Coded Allergies: No Known Allergies (Unverified , 08/01/16) Objective Last 24 Hour Vital Signs Date Time Temp Pulse Resp B/P Pulse Ox O2 Delivery O2 Flow Rate FiO2 08/03/16 11:15 96.6 62 18 128/66 99 Room Air 08/03/16 07:47 96.0 57 18 130/53 96 Room Air 08/03/16 06:47 67 18 Room Air 08/03/16 05:35 169/77 08/03/16 04:11 97.7 65 19 169/77 97 Room Air 08/03/16 04:00 59 08/03/16 00:23 98.7 68 18 135/64 95 Room Air 08/03/16 00:00 61 08/02/16 22:40 96.4 08/02/16 20:00 55 08/02/16 19:49 142/76 08/02/16 19:45 59 142/64 08/02/16 19:40 55 176/64 08/02/16 19:35 55 55 59 08/02/16 19:35 96.4 55 18 152/64 97 Room Air 08/02/16 16:00 53 08/02/16 16:00 97.7 56 16 139/55 97 Room Air Intake and Output 08/02/16 08/03/16 19:00 07:00 Intake Total 620 ml 360 ml Output Total 200 ml Balance 420 ml 360 ml Intake Oral 620 ml 360 ml Output Urine Total 200 ml # Voids 3 4 General Appearance: WD/WN HEENT: normocephalic, atraumatic Respiratory/Chest: chest wall non-tender, lungs clear Breasts: no masses Cardiovascular: normal peripheral pulses, normal rate Abdomen: soft, non tender Genitourinary: normal external genitalia Extremities: no clubbing Skin: no rash, no lesions Laboratory Tests 08/03/16 05:00: Troponin I < 0.30, Pro-B-Type Natriuretic Peptide 1496H Current Medications Medications (Trade) Dose Ordered Sig/Jasmina Route PRN Reason Start Time Stop Time Status Last Admin Dose Admin Acetaminophen (Tylenol) 650 mg Q4H PRN ORAL fever 08/01/16 19:30 08/31/16 19:29 Al Hydroxide/Mg Hydroxide (Mylanta II) 30 ml Q6H PRN ORAL dyspepsia 08/01/16 19:30 08/31/16 19:29 Albuterol/ Ipratropium (DuoNeb 0.5-3(2.5)mg/3ml) 3 ml Q4H PRN HHN Shortness of Breath 08/01/16 19:30 08/06/16 19:29 Clonidine HCl (Catapres) 0.1 mg Q4H PRN ORAL SBP > 160 08/01/16 19:30 08/31/16 19:29 08/02/16 08:18 Dextrose (Dextrose 50%) STAT PRN IV Hypoglycemia 08/01/16 19:30 08/31/16 19:29 Heparin Sodium (Porcine) (Heparin 5000 units/ml) 5,000 units EVERY 12 HOURS SUBQ 08/01/16 21:00 08/31/16 20:59 08/03/16 08:43 Hydralazine HCl (Apresoline) 50 mg Q8HR ORAL 08/02/16 17:30 09/01/16 17:29 08/03/16 05:35 Lorazepam (Ativan 2mg/ml 1ml) 0.5 mg Q4H PRN IV For Anxiety 08/01/16 19:30 08/08/16 19:29 Morphine Sulfate (Morphine Sulfate) 1 mg Q4H PRN IVP For Pain 7-10 08/01/16 19:30 08/08/16 19:29 08/03/16 08:41 Nebivolol (Bystolic) 5 mg DAILY ORAL 08/02/16 17:30 09/01/16 17:29 08/03/16 08:41 Nitroglycerin (Ntg) 0.4 mg Q5M X 3 DOSES PRN SL Prn Chest Pain 08/01/16 19:30 08/31/16 19:29 Ondansetron HCl (Zofran) 4 mg Q6H PRN IVP Nausea & Vomiting 08/01/16 19:30 08/31/16 19:29 Polyethylene Glycol (Miralax) 17 gm HSPRN PRN ORAL Constipation 08/01/16 19:30 08/31/16 19:29 08/03/16 08:49 Temazepam (Restoril) 15 mg HSPRN PRN ORAL Insomnia 08/01/16 19:30 08/08/16 19:29 MARY IRVING Aug 03, 2016 13:00
--- NOTE | 2016-08-03 14:26 | Diagnostic Imaging Report ---
Indication: Abnormal renal function tests Technique: Grayscale and duplex images of the kidneys, retroperitoneum, and bladder were obtained. Comparison:None Findings: Right kidney is surgically absent, per patient. Left kidney measures 11.3 cm in length. Left kidney demonstrates normal echogenicity. There is mild hydronephrosis. Questionable calculus versus artifact is seen in the renal sinus.. Normal inferior vena cava. Bladder demonstrates a 10 mL postvoid residual. Hydronephrosis persists after voiding. Impression: Mild left hydronephrosis, etiology uncertain. Consider CT for further evaluation if clinically indicated Surgically absent right kidney 10 mm postvoid bladder residual.
--- NOTE | 2016-08-03 15:42 | Diagnostic Imaging Report ---
Indication: Chest pain, status post fall Technique: Multiple views of the left ribs Comparison: None Findings: The bones are osteoporotic. No acute fractures. No gross pneumothorax. Incidental finding of surgical clips in the medial right abdomen Impression: No acute process
[2016-08-03 16:00] VITALS: BP 118/60
--- NOTE | 2016-08-03 23:14 | Cardiology Report ---
APPROVED REPORT EKG Measurement Heart [id number] Sinus bradycardia Otherwise normal ECG
--- NOTE | 2016-08-04 11:01 | Cardiology Report ---
APPROVED REPORT EXAM: Two-dimensional and M-mode echocardiogram with Doppler and color Doppler. INDICATION Endocarditis M-Mode DIMENSIONS IVSd1.5 (0.7-1.1cm)Left Atrium (MM)4.8 (1.6-4.0cm) LVDd5.5 (3.5-5.6cm)Aortic Root2.7 (2.0-3.7cm) PWd1.2 (0.7-1.1cm)Aortic Cusp Exc.1.5 (1.5-2.0cm) LVDs3.0 (2.5-4.0cm) PWs1.7 cm Other Information Technically limited study due to poor apical windows. Normal left ventricular chamber size, systolic function and wall motion to extent visualized. Left ventricular ejection fraction estimated to be 70 %. Moderate left ventricular hypertrophy. Anterior Echo-free space, may be due to pericardial fat or effusion. Mild bi-atrial enlargement. Right ventricular chamber size is within normal limits. Focal aortic valve sclerosis with adequate cusp excursion. Thickened mitral valve leaflets with normal excursion. Mitral annulus and aortic root calcification. Pulmonic valve not well visualized. Normal tricuspid valve structure. IVC measured at 2.0 cm with physiologic collapse. A color flow and spectral Doppler study was performed and revealed: Trace aortic regurgitation. Mild mitral regurgitation. Mitral diastolic velocities suggest reduced left ventricular relaxation c/w mild LV diastolic dysfunction (Grade I ). Mild tricuspid regurgitation. Tricuspid systolic velocities suggests peak right ventricular systolic pressure of 45 mmHg, consistent with borderline moderate pulmonary hypertension.
--- NOTE | 2016-08-04 13:20 | Discharge Summary ---
Discharge Summary Hospital Course Date of Admission Aug 01, 2016 at 17:50 Date of Discharge Aug 03, 2016 at 18:00 Admitting Diagnosis syncope HPI Genya I Randy is a 76 year old female who was admitted on Aug 01, 2016 at 17: 50 for Syncope Hospital Course [id number] Discharge Discharge Disposition Patient was discharged to Home with Discharge Diagnoses: Mariana Momin NP Aug 04, 2016 13:20
--- NOTE | 2016-08-04 20:28 | Cardiology Report ---
APPROVED REPORT EKG Measurement Heart [id number] Normal sinus rhythm Normal ECG
--- NOTE | 2016-08-05 01:38 | Discharge Summary 2 SIG ---
DATE OF ADMISSION: 08/01/2016 DATE OF DISCHARGE: 08/03/2016 MASTER MACHINIST: 1. Kavon Berg M.D. 2. Nikko Fernandez M.D. 3. Daniel Dodd M.D. BRIEF HOSPITAL COURSE: The patient is a 76-year-old female with history of hypertension, was brought in by paramedics secondary to a fall. The patient does not remember if she fainted or not, but presented with right hand and wrist pain. At ED, the patient underwent right wrist joint reduction and arm splinting. X-ray of the right forearm revealed a distal radial fracture. The patient underwent a joint reduction and splinting at ED and was given IV hydration. CT of the head showed no acute disease. She was admitted to telemetry. Dr. Dodd was consulted. The right arm had moderate swelling and recommended elevation of right hand and removal of rings on fingers. She was admitted to telemetry for syncope workup. She never had syncope before and has not been told of any prior heart conditions. She is usually being followed by Dr. Ibarra. Records from [facility] were reviewed. She had a perfusion imaging at [facility] with PET that was basically negative with ejection fraction of 75%. Last echocardiogram showed left ventricular hypertrophy, which appeared to have normal wall motion with ejection fraction of 63%. Chest x-ray showed low lung volumes with enlarged heart with aortic tortuosity. No definite infiltrates or effusions noted. The patient did not have any loss of consciousness to suggest a syncopal episode. She was resumed hydralazine and Bystolic. Carotid duplex showed no significant plaque bilaterally. Dr. Berg was also consulted. 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 She was given physical therapy and occupational therapy evaluation. She came in with elevated renal function. Ultrasound of the kidney, showed mild left hydronephrosis and surgically absent right kidney. A repeat echocardiogram done showed normal left ventricular size, function, and wall motion. Ejection fraction 70%. A rib and sternal x-ray done was negative for acute bony trauma. She was recommended to follow up with licensed land surveyor as an outpatient and was discharged home with home health. FINAL DIAGNOSES: 1. Acute toxic metabolic encephalopathy. 2. Acute kidney injury with acute tubular necrosis. 3. Nonsyncopal fall. 4. Hypertension. 5. Acute right wrist fracture secondary to fall. 6. Blunt head injury. 7. Renal cell carcinoma. 8. Chest wall tenderness, status post fall possibly with contusions. 9. Hyperlipidemia. 10. Diabetes mellitus. 11. Bradycardia, on Bystolic. [place] M.D. I have been assigned to dictate discharge summary on this account and I was not involved in the patient's management. Mariana Momin N.P. DR: MARIUSZ JOB#: [id number] CC: TESS
== END 2016-08-03 18:00 | disposition home or self-care (01) | DRG 562 ==
LOC: EDBD 16:09 → EMR 16:37 → 2E 17:50 → EDBEDREQ 18:49 → 2E 20:45
PROC: 0PSHXZZ Reposition Right Radius, External Approach (ICD-10-PCS; principal; 2016-08-01)
DX: S52.551A Other extraarticular fracture of lower end of right radius, initial encounter for closed fracture (principal); N17.0 Acute kidney failure with tubular necrosis; G92 Toxic encephalopathy; C64.9 Malignant neoplasm of unspecified kidney, except renal pelvis; S09.8XXA Other specified injuries of head, initial encounter; S20.219A Contusion of unspecified front wall of thorax, initial encounter; E11.9 Type 2 diabetes mellitus without complications; E78.5 Hyperlipidemia, unspecified; E66.9 Obesity, unspecified; Z68.27 Body mass index [BMI] 27.0-27.9, adult; W01.0XXA Fall on same level from slipping, tripping and stumbling without subsequent striking against object, initial encounter; Y92.89 Other specified places as the place of occurrence of the external cause; R00.1 Bradycardia, unspecified; M25.562 Pain in left knee; Z79.02 Long term (current) use of antithrombotics/antiplatelets
CPT/HCPCS: 29125; 36415; 70450; 71010; 71120; 76775; 80053; 80061; 81001; 82533; 82550; 82553; 83690; 83735; 83880; 83930; 83935; 84100; 84133; 84300; 84439; 84443; 84484; 84550; 85025; 85610; 85730; 89050; 93005; 93306; 93880; 94664; J2405

== ENCOUNTER → 2016-08-26 | Day surgery (SDC) | payer MEDICARE, MEDICAID ==
[2016-08-26] VITALS (9 sets, daily range): BP systolic 126–151; BP diastolic 56–72
[~2016-08-26] VITALS: Ht 160 cm; Wt 86.2 kg
[~2016-08-26] MED LIST: ATORVASTATIN CA10 MG ORAL; BYSTOLIC10 MG ORAL; Bacitracin 50000 Units Vial ONE; Bupivacaine 0.25% Inj 30ml INJ ONE; D5 1/2NS 1,000 ML IV SCH; DiphenhydrAMINE 50mg/ml Inj IVP PRN; HYDRALAZINE HCL50 MG ORAL; HYDROmorphone 1mg/ml Carpuject SUBQ PRN; LR 1000ml 1,000 ML IVLG SCH; LR 1000ml ONE; Midazolam 2mg/2ml Inj ONE; NS Irrig 1000ml ONE; Norco 5mg/325mg tab ORAL PRN; Propofol 10mg/ml 20ml IV ONE; Ropivacaine 5mg/ml Vial 20ml INJ ONE; Sterile Water Irrig 1000ml IRRIG ONE; TRAMADOL HCL200 M1 ORAL; Tylenol #3 tab (300mg/30mg) ORAL PRN; ceFAZolin 1gm/50ml Premix 50 ML IV ONE; ceFAZolin sod 1gm in NS 55ml IVPB ONE; celeBREX 200mg Cap **SURGERY PATIENTS ONLY ORAL ONE; fentaNYL 100 mcg/2 mL IV ONE; fentaNYL 100 mcg/2 mL IV PRN; oxyCONTIN 20mg tab ORAL ONE
--- NOTE | 2016-08-26 08:01 | Pre-Procedure Note/Attestation ---
Pre-Procedure Note/Attestation Complete Prior to Procedure Planned Procedure: right Procedure Narrative: wrist orif Indications for Procedure Pre-Operative Diagnosis: right wrist fracture Attestation I attest that I discussed the nature of the procedure; its benefits; risks and complications; and alternatives (and the risks and benefits of such alternatives ), prior to the procedure, with the patient (or the patient's legal freight representative). I attest that, if there was a reasonable possibility of needing a blood transfusion, the patient (or the patient's legal freight representative) was given the [facility] standardized written summary, pursuant to the [place] Blood Safety Act ([place] Health and Safety Code # 1645, as amended). I attest that I re-evaluated the patient just prior to the surgery and that there has been no change in the patient's H&P, except as documented below: NGA ROLLINS Aug 26, 2016 08:01
--- NOTE | 2016-08-26 08:06 | Operative Note - PDOC ---
Operative Note Operative Note Pre-op Diagnosis: right wrist fracture Procedure: right wrist orif Post-op Diagnosis: same as pre-op plus Operative Findings: consistent w/pre-op dx studies Anesthesia: MAC Specimen: none Complications: none Condition: stable Estimated Blood Loss: none Implant(s) used?: Yes NGA ROLLINS Aug 26, 2016 08:06
--- NOTE | 2016-08-26 11:03 | Anethesia Preoperative Eval ---
Anesthesia Pre-op PMH/ROS General Date of Evaluation: Aug 26, 2016 Time of Evaluation: 10:10 Anesthesiologist: Joe ASA Score: ASA 3 Mallampati Score Class I : Soft palate, uvula, fauces, pillars visible Class II: Soft palate, uvula, fauces visible Class III: Soft palate, base of uvula visible Class IV: Only hard plate visible Mallampati Classification: Class III Surgeon: Yousif Diagnosis: R wrist Fx. Surgical Procedure: ORIF of R wrist Fx Anesthesia History: none Family History: no anesthesia problems Allergies: Coded Allergies: No Known Allergies (Unverified , 08/01/16) Medications: see eMAR Past Medical History Cardiovascular: Reports: HTN, Denies: CAD, IA, arrhythmia, other, valve dz Pulmonary: Reports: AQUILINO, Denies: COPD, asthma, other Gastrointestinal/Genitourinary: Reports: CRI - s/p nephrectomy, GERD Neurologic/Psychiatric: Reports: depression/anxiety, Denies: CVA, TIA, dementia, other Endocrine: Denies: DM, hypothyroidism, other, steroids HEENT: Reports: cataract (L), cataract (R), Denies: [place] (L), [place] (R), glaucoma, other Hematology/Immune: Reports: anemia - mild, Denies: DVT, bleeding disorder, other Musculoskeletal/Integumentary: Reports: DJD Other: other - overweight PMH Narrative: as above PSxH Narrative: Nephrectomy. pericardial window Anesthesia Pre-op Phys. Exam Physician Exam Last Vital Signs Date Time Temp Pulse Resp B/P Pulse Ox O2 Delivery O2 Flow Rate FiO2 08/26/16 08:47 98.0 51 18 126/56 98 Room Air Constitutional: NAD Neurologic: CN 2-12 intact Cardiovascular: RRR, no M/R/G Respiratory: other - diminished breath sounds Gastrointestinal: other - obesity Airway Exam Mallampati Score: Class III MO: limited Neck: short stiff ROM: limited Teeth: missing Dentures: lower, upper Anesthesia Pre-op A/P Labs see chart Studies Pre-op Studies: EKG - NSR Risk Assessment & Plan Assessment: ASA 3 Plan: GA with LMA R axillary block for surgeon request for p/op pain control Status Change Before Surgery: No Pre-Antibiotics Drug: Ancef 1gr Given Within 1 Hr of Incision: Yes Time Given: 10:48 PEGGY CODY M.D. Aug 26, 2016 11:03
--- NOTE | 2016-08-26 13:18 | Immediate Post-Op Evaluation ---
Immediate Post-Op Evalulation Immediate Post-Op Evalulation Procedure: R wrist ORIF Date of Evaluation: Aug 26, 2016 Time of Evaluation: 12:15 IV Fluids: 800 Blood Products: none Estimated Blood Loss: min Urinary Output: none Blood Pressure Systolic: 134 Blood Pressure Diastolic: 68 Pulse Rate: 72 Respiratory Rate: 20 O2 Sat by Pulse Oximetry: 99 Temperature (Fahrenheit): 97.8 Pain Score (1-10): 2 Nausea: No Vomiting: No Complications none Patient Status: reacts, patent, none Hydration Status: adequate PEGGY CODY M.D. Aug 26, 2016 13:18
--- NOTE | 2016-08-26 14:50 | Diagnostic Imaging Report ---
Indication: Pain Findings: Fluoroscopic views of the right wrist were obtained. T. plate reduction of a distal radius fracture demonstrated. Impression: Fluoroscopic intraoperative imaging
--- NOTE | 2016-08-26 16:23 | 48 Hour Post Anesthesia Eval ---
Post Anesthesia Evaluation Procedure: R wrist ORIF Date of Evaluation: Aug 26, 2016 Time of Evaluation: 16:22 Blood Pressure Systolic: 136 0: 72 Pulse Rate: 68 Respiratory Rate: 20 Temperature (Fahrenheit): 97.4 O2 Sat by Pulse Oximetry: 98 Airway: patent Nausea: No Vomiting: No Pain Intensity: 2 Hydration Status: adequate Cardiopulmonary Status: stable Mental Status/LOC: patient returned to baseline Follow-up Care/Observations: n/a Post-Anesthesia Complications: none Follow-up care needed: ready to discharge PEGGY CODY M.D. Aug 26, 2016 16:23
--- NOTE | 2016-09-02 08:08 | Operative Note - Dictated ---
DATE OF OPERATION: 08/26/2016 PREOPERATIVE DIAGNOSIS: Right intra-articular distal radius fracture. POSTOPERATIVE DIAGNOSIS: Right intra-articular distal radius fracture. PROCEDURE PERFORMED: Open reduction and internal fixation right distal radius fracture complicated secondary to delayed surgery. SURGEON: Daniel Dodd M.D. ANESTHESIA: Interscalene with general. INDICATION FOR PROCEDURE: The patient is a pleasant female with extra-articular distal radius fracture, displaced, loss of radial inclination and height, and given the amount of displacement risk factor, the open reduction and internal fixation would be reasonable. Risks, limitations, expectations and complications related to procedure were discussed in detail. All questions were addressed. DESCRIPTION OF PROCEDURE: Informed consent was obtained. The patient was taken to the operative room and placed under interscalene general anesthesia. Tourniquet was applied to the right proximal arm. The right arm was prepped and draped in a sterile manner. Time-out was performed. At this point, an anterior approach to the distal radius was performed. Once the fracture was identified, the radial inclination was to be corrected. Once this was corrected, the . At this point, . Once was confirmed, distal screws were placed. Further reduction of the fracture was performed using the plate. Once that was completed, the incision was closed using 3-0 Vicryl and 3-0 Monocryl sutures. Steri-Strips and posterior splint was applied. The patient was awoken and taken to the recovery room with stable vital signs. ESTIMATED BLOOD LOSS: Minimal. COMPLICATIONS: None. SPECIMENS: None. Daniel Dodd M.D. DR: WILMAN JOB#: [id number] CC:
== END | disposition home or self-care (01) ==
LOC: SUR 08:03
DX: S52.571A Other intraarticular fracture of lower end of right radius, initial encounter for closed fracture (principal); W19.XXXA Unspecified fall, initial encounter; Y92.89 Other specified places as the place of occurrence of the external cause; Y99.9 Unspecified external cause status; I12.9 Hypertensive chronic kidney disease with stage 1 through stage 4 chronic kidney disease, or unspecified chronic kidney disease; N18.9 Chronic kidney disease, unspecified; E11.9 Type 2 diabetes mellitus without complications; E78.5 Hyperlipidemia, unspecified; E66.3 Overweight; Z68.30 Body mass index [BMI] 30.0-30.9, adult; R00.1 Bradycardia, unspecified; R32 Unspecified urinary incontinence; D64.9 Anemia, unspecified; M54.10 Radiculopathy, site unspecified; F41.9 Anxiety disorder, unspecified; R53.83 Other fatigue; R51 Headache; G47.33 Obstructive sleep apnea (adult) (pediatric); R91.1 Solitary pulmonary nodule; K21.9 Gastro-esophageal reflux disease without esophagitis; Z85.53 Personal history of malignant neoplasm of renal pelvis; Z90.5 Acquired absence of kidney
CPT/HCPCS: 25608; 73100; 76001; C1713; J0690; J2250; J2704; J2795; J3010; J3490; J7120; 94003; 94150